=== PATIENT | male | born 1955 | race Caucasian/White ===

== ENCOUNTER 2017-11-07 06:34 | Day surgery (SDC) | payer OTHER ==
[2017-11-07] MEDS ORDERED: NS 1000P @30 MLS/HR (KVO) IV SCH (07:15)
[2017-11-08] MEDS ORDERED: CETI10 PO (09:39)
[2017-11-08] MEDS ORDERED: OMEP20TA93 PO (09:39)
[2017-11-08] MEDS ORDERED: HYDR12.57 PO (09:39)
[2017-11-08] MEDS ORDERED: SYMB160A INH (09:39)
[2017-11-08] MEDS ORDERED: AMLO5TAB2 PO (09:39)
[2017-11-08] MEDS ORDERED: ALBUAER3 INH (09:39)
[2017-11-08] MEDS ORDERED: CIAL20TA PO (09:39)
[2017-11-08] MEDS ORDERED: ASPI81TA23 PO (09:39)
[2017-11-08] MEDS ORDERED: METO1TAB42 PO (09:39)
[2017-11-08] MEDS ORDERED: FIBE625T10 PO (09:39)
[2017-11-08] MEDS ORDERED: HEPARIN-NS/PF FLUSH BAG 2,000 ML IV FLUSH ONE (09:54)
== END 2017-11-07 08:45 | disposition home or self-care (01) ==
LOC: HDOC 06:34 → HDIC 06:35 → HDOC 08:45
PROVIDERS: ATTEND Nuclear Medicine Nuclear Cardiology
DX: R94.39 Abnormal result of other cardiovascular function study (principal); Z53.9 Procedure and treatment not carried out, unspecified reason
CPT/HCPCS: 99211; G0463; J1644

== ENCOUNTER 2017-11-08 09:02 | Day surgery (SDC) | payer OTHER ==
[~2017-11-08] VITALS: Ht 182.9 cm; Wt 100.2 kg
[2017-11-08] MEDS ORDERED: IOHEXOL 350 MG/ML 100 ML BTL (for Cath Lab) OTHER ONE (09:03)
[2017-11-08] MEDS ORDERED: SODIUM CHLOR 0.9% 1000 ML INJ 1,000 ML IV SCH (09:30)
[2017-11-08] MEDS ORDERED: OMEP20TA93 PO (09:39)
[2017-11-08] MEDS ORDERED: FIBE625T10 PO (09:39)
[2017-11-08] MEDS ORDERED: ALBUAER3 INH (09:39)
[2017-11-08] MEDS ORDERED: METO1TAB42 PO (09:39)
[2017-11-08] MEDS ORDERED: AMLO5TAB2 PO (09:39)
[2017-11-08] MEDS ORDERED: CETI10 PO (09:39)
[2017-11-08] MEDS ORDERED: SYMB160A INH (09:39)
[2017-11-08] MEDS ORDERED: ASPI81TA23 PO (09:39)
[2017-11-08] MEDS ORDERED: CIAL20TA PO (09:39)
[2017-11-08] MEDS ORDERED: HYDR12.57 PO (09:39)
[2017-11-08 09:43] VITALS: BP 171/96; PULSE 73; RESP 18; TEMP 98.3; O2SAT 97
[2017-11-08 09:47] LABS: AUTOMATED NEUTROPHIL # 3.2 TH/MM3 (1.8-7.7); BASOPHIL % 0.7 % (0.0-2.0); EOSINOPHIL % 0.6 % (0.0-4.0); HEMATOCRIT 47.4 % (39.0-51.0); HEMOGLOBIN 16.7 GM/DL (13.0-17.0); LYMPH % 31.6 % (9.0-44.0); LYMPHOCYTE # 1.8 TH/MM3 (1.0-4.8); MEAN CELL VOLUME 91.9 FL (80.0-100.0); MEAN CORPUSCULAR HEMOGLOBIN 32.3 PG (27.0-34.0); MEAN CORPUSCULAR HGB CONC 35.2 % (32.0-36.0); MEAN PLATELET VOLUME 6.6 FL (7.0-11.0); MONOCYTE # 0.7 TH/MM3 (0-0.9); NEUT % 55.1 % (16.0-70.0); PLATELET COUNT 267 TH/MM3 (150-450); RED BLOOD COUNT 5.16 MIL/MM3 (4.50-5.90); RED CELL DISTRIBUTION WIDTH 13.1 % (11.6-17.2); WHITE BLOOD COUNT 5.7 TH/MM3 (4.0-11.0)
[2017-11-08 09:52] LABS: INTERNATIONAL NORMALIZED RATIO 1.1 RATIO; PROTHROMBIN TIME - PATIENT 11.3 SEC (9.8-11.6)
[2017-11-08] MEDS ORDERED: VERAPAMIL HCL 5 MG/2 ML VIAL ONE (10:01)
[2017-11-08] MEDS ORDERED: MIDAZOLAM HCL 2 MG/2 ML VIAL ONE (10:01)
[2017-11-08] MEDS ORDERED: HEPARIN SODIUM - IV 10,000 UNITS/10 ML VIAL ONE (10:01)
[2017-11-08] MEDS ORDERED: NITROGLYCERIN INJ 5 ML ONE (10:01)
[2017-11-08 10:02] LABS: BICARBONATE 26.7 MEQ/L (21.0-32.0); CALCIUM 9.3 MG/DL (8.5-10.1)
[2017-11-08] MEDS ORDERED: NS 1000P @30 MLS/HR (KVO) IV SCH (10:30)
--- NOTE | 2017-11-08 10:57 | CATHPROC ---
pickrset HIS Report Study Information Study Number Admission Scheduled Start Study Start [id number] Nov 08 2017 9:02AM 11/08/2017 Nov 08 2017 9:45AM [place] Service Cardiac Catheterization Admit Source Facility Department Other [facility] - Strategic Communications Manager Physician and Clinical Staff Initial Kenny Aguilar Turkey Egg Gatherer Elly Vick RN Turkey Egg Gatherer Yordan Horne,LAMONTE Recorder Brooke Rico,SINGING MESSENGER TECH2 Scrub Akosua Payne,PARALEGAL LEGAL SECRETARY TECH2 Scrub Quita Inman ,RT(R) Procedures Performed Procedure Location (Site) Vessel Name Coronary Angiograms LCA Left Coronary Coronary Angiograms RCA Right Coronary L Heart Cath Wire insertion Radial (right) Radial Art. Equipment Time Lawnmower Repair Mechanic Description Size Mfg Part Number Used/Scraped TRANSDUCER, TRUWAVE [id number] 09:53 WASHINGTON CHAVEZ * Used W/STOCKCOCK *[id number] [id number] *[id number] [id number] *[id number] 09:53 [employer] PACK, CCL CUSTOM * Used *[id number] 09:53 [employer] SUPPORT, ARTERIAL ADULT 35289 *[id number] Used [id number] 10:31 [employer]/AVE EBU 3.5 Z2 GUIDE CATHETER FR 6 Used *[id number] BAND, RADIAL COMPRESSION TR [id number] 10:46 [employer] MEDICAL 29CM Used LARGE 29 *[id number] 09:53 [employer] WIRE, EXCHANGE 260CM 3MMJ 260CM Used *[id number] 09:53 NAMIC MANIFOLD, 4 PORT * Used *[id number] 09:53 [employer] OMNIPAQUE, 350 MG, 150ML 150ML [id number] Used [id number] 09:53 [employer] BL[employer]ET,WARM AIR CCL * Used *[id number] SHEATH, FR6 TRANSRADIAL RM*[id number] 09:53 [employer] FR 6 Used SLENDER 10CM *[id number] 10:37 [employer] PRIME WIRE, VERRATA 185CM 185CM 11283 *[id number] Used History: Current Medications Medication Dosage/Unit Route Frequency Last Date/Time Taken ASA NORVASC LOPRESSOR Prilosec CIALIS History: Allergies Allergy Reaction NKDA History: Risk Factors Family History of Hypertension Dyslipidemia Previous HI Previous Heart Failure Premature CAD Yes No No No No Prior Valve Prior PCI Prior CABG Surgery No No No Cerebrovascular Peripheral Artery Chronic Lung On Dialysis Diabetes Disease Disease Disease No No No Yes No History: Symptoms/Diagnosis Selection Items HAN History: CV Disease Selection Items Known CAD History: Stress Tests Stress or Imaging Studies Performed Yes Standard Exercise Stress Test No Stress Echo No Stress Test SPECT Stress Test SPECT Result Stress Test SPECT Ischemia Risk/Extent Yes Positive Intermediate Stress Test CMR No Cardiac CTA Coronary Calcium Score No No History: Other Disease Selection Items Gerd History: Other Current Smoker No Labs Hgb (g/dl) Hct (%) RBC (MIL/MM3) WBC (l/cumm) Platelets (thousands) 11.60-17.00 35.00-51.00 4.00-5.90 4.00-11.00 150.00-450.00 16.7 47.4 5.1 5.7 267 Glucose (mg/dl) BUN (mg/dl) Creatinine (mg/dl) BUN:Creatinine (1:x) 74.00-106.00 7.00-18.00 0.50-1.30 10.00-20.00 117 15 1.0 15 Na (meq/l) K (meq/l) Cl (meq/l) CO2 (mmol/L) Ca (mg/dl) 136.00-145.00 3.50-5.10 98.00-107.00 21.00-32.00 8.50-10.10 139 3.7 106 26.7 9.3 PT (sec) PTT (sec) INR (PTT:PT) 9.80-11.60 24.30-30.10 0.90-1.10 11.3 26.1 1.1 Medication Medication Total Dose (Bolus/Oral) Medication Total Dosage/Unit 1% XYLOCAINE 20 mL FENTANYL 25 mcg HEPARIN 6000 units RADIAL COCKTAIL 5 mL (Bolus) VERSED 0.5 mg Medications (Bolus/Oral) Medication Time Given Dosage/Unit Administered By Reason 1% XYLOCAINE 11/08/2017 10:15:49 AM 20 mL Kenny Ruiz 20 mL 1% XYLOCAINE given in lab by Kenny Ruiz in Right Radial via Subcutaneous. Ordered by Kenny Medina VERSED 11/08/2017 10:15:49 AM 0.5 mg Elly Vick 0.5 mg VERSED given in lab by Elly Vick, RN in Left Antecubital via Peripheral IV. Ordered by Kenny Medina FENTANYL 11/08/2017 10:16:08 AM 25 mcg Elly Vick 25 mcg FENTANYL given in lab by Elly Vick RN in Left Antecubital via Peripheral IV. Ordered by Kenny Ruiz RADIAL COCKTAIL 11/08/2017 10:18:21 AM 5 mL (Bolus) Kenny Ruiz 5 mL (Bolus) RADIAL COCKTAIL given in lab by Kenny Ruiz in Right Radial via Radial. Using [S olution Name]. Ordered by Kenny Ruiz Reason: Ntg 200mcg Verapamil 2.5mg Heparin 4000U. HEPARIN 11/08/2017 10:32:36 AM 6000 units Elly Vick 6000 units HEPARIN given in lab by Elly Vick RN in Left Antecubital via Peripheral IV. Ordered by Kenny Ruiz Medication (Drip) Medication Time Given Dosage/Unit Concentration/Unit Diluent (ml) Solution IV Solutions 11/08/2017 9:53:34 AM 0 mL (IV) 500 NaCl .9 IV Solutions given in lab by Elly Vick RN in Left Antecubital via Peripheral IV. Pump/Drip Jean w = 20 ml/hr using NaCl .9. Ordered by Kenny Ruiz Initial Case Assessment Cardiovascular HR Rhythm NIBP Chest Pain 80 bbb 154/122 0 Circulatory - Right Pulses Dorsalis Pedis Femoral Radial 3 2 3 Scale (0,1,2,3,4,d) Circulatory - Left Pulses Dorsalis Pedis Femoral Radial 2 Scale (0,1,2,3,4,d) Neurological State Oriented to time-place- Alert Moves all extremities person Respiration - General Respiration Rate SpO2 (%) (B/min) 18 97 Final Case Assessment Cardiovascular HR Rhythm NIBP Chest Pain 65 bbb 101/81 0 Circulatory - Right Pulses Dorsalis Pedis Femoral Radial 3 3 3 Scale (0,1,2,3,4,d) Circulatory - Left Pulses Dorsalis Pedis Femoral Radial 2 Scale (0,1,2,3,4,d) Neurological State Oriented to time-place- Alert Moves all extremities person Respiration - General Respiration Rate SpO2 (%) (B/min) 13 97 Chronological Log Time Study Chronological Log 9:47:57 Patient arrived via Bed. 9:47:58 Patient Name, D.O.B, / Armband Verified By R.N. 9:49:59 Consent signed by the physician and the patient and verified by the Strategic Communications Manager staff. 9:50:00 Pre-op and post- op instructions given; patient acknowledges understanding of instructions. 9:50:01 Verbal Stimulation=2 Physical Stimulation=2 Airway=2 Respiration=2 TOTAL=8. (0=absent, 1=parra ited, 2=present) 9:53:17 Presedation assessment performed by Strategic Communications Manager RN. 9:53:19 Allens test performed on the left radial and ulnar artery. 9:53:24 Patient has been NPO for More than 6Hrs. 9:53:27 Skin Breakdown-none 9:53:31 Neftaly Prominences Protected 9:53:33 A # 20 IV was noted in the Antecubital (left). Grade = patent IV Solutions given in lab by Elly Vick, RN in Left Antecubital via Peripheral IV. Pump/Dr ip Flow = 20 ml/hr using 9:53:34 NaCl .9. Ordered by Kenny Ruiz 9:53:36 History and physical on the chart or being dictated. Vitals capture started with the following parameters, Patient=Adult, Interval=5 min, Initial Pr qbnavl=737 mmHg, 9:53:39 Deflation Rate=5 mmHg, Cuff placed on Left Arm 9:54:15 HR=78 bpm, WRWF=762/122 mmhg, SpO2=96 %, Resp=15 B/min, Pain=0, Armando=10, Bagley=2 Assessment: Initial Case, HR=80 BPM, Rhythm=bbb, QCPS=306/122 mmhg, Chest Pain=0 Right Pulses: Ottoniel Ped=3, Femoral=2, Radial=3 9:55:02 Left Pulses: Ottoniel Ped=2 Neurological: State=Alert, Ox3, DELEON Respiration: Resp=18 B/min, SpO2=97 % 9:59:59 HR=88 bpm, NCWF=753/96 mmhg, SpO2=93.0 %, Resp=17 B/min 10:00:28 Right groin and right radial prepped with 2% chlorhexidine, and draped after a 3 min. waiti ng time. 10:04:19 HR=78 bpm, ZQBP=289/74 mmhg, SpO2=97 %, Resp=17 B/min, Pain=0, Armando=10, Bagley=2 10:06:39 Pressure channel 1 zeroed. 10:09:18 HR=80 bpm, FAAL=874/93 mmhg, SpO2=94.0 %, Resp=18 B/min 10:09:38 MD arrived. 10:10:46 Reference ECG taken 10:14:19 HR=78 bpm, GVAQ=123/98 mmhg, SpO2=93.0 %, Resp=14 B/min Time Out. Correct patient, correct procedure, correct physician, power injector loaded, or not loaded with contrast with 10:15:14 surgical team present. Time Out Concurred by MD and individual staff in procedure. 10:15:48 Case Start 20 mL 1% XYLOCAINE given in lab by Kenny Ruiz in Right Radial via Subcutaneous. Ordere d by Joseph 10:15:49 Kenny Fuentes. 0.5 mg VERSED given in lab by Elly Vick, RN in Left Antecubital via Peripheral IV. Ordere d by Kenny Ruiz 10:15:49 G. 25 mcg FENTANYL given in lab by Elly Vick, LAMONTE in Left Antecubital via Peripheral IV. Orde red by Joseph, 10:16:08 Kenny Fuentes. 10:16:51 Access site was Radial Artery. right A SHEATH, FR6 TRANSRADIAL SLENDER 10CM FR 6 was advanced into the Radial (right) using the Perc utaneous 10:17:04 technique. 5 mL (Bolus) RADIAL COCKTAIL given in lab by Kenny Ruiz in Right Radial via Radial. Us ing [Solution Name]. 10:18:21 Ordered by Kenny Ruiz. Reason: Ntg 200mcg Verapamil 2.5mg Heparin 4000U. A JR 4.0 INFINITI CATHETER FR 5 was advanced over a wire. OMNIPAQUE, 350 MG, 150ML 150ML was us ed for 10:19:02 injections. 10:19:22 HR=79 bpm, TSLA=626/86 mmhg, SpO2=95.0 %, Resp=12 B/min Recorded Pressure: LV, HR=78, Condition=Condition 1 10:20:14 (Left Ventricle) LV 129/1/8 Recorded Pressure: LV, Ao, HR=77, Condition=Condition 1 10:20:26 (Left Ventricle) LV 133/0/8, (Aorta) Ao 127/71/96 10:21:52 The RCA was injected and visualized at various angles. OMNIPAQUE, 350 MG, 150ML 150ML used . After removing the current catheter a JL 3.5 INFINITI CATHETER FR 5 was advanced over a WIRE, E XCHANGE 260CM 10:22:22 3MMJ 260CM. 10:24:17 HR=73 bpm, SLNG=594/86 mmhg, SpO2=93 %, Resp=15 B/min 10:25:40 The LCA was injected and visualized at various angles. OMNIPAQUE, 350 MG, 150ML 150ML used . 10:29:13 Catheter was removed over wire. 10:29:55 HR=70 bpm, TLYR=179/93 mmhg, SpO2=91.0 %, Resp=23 B/min A EBU 3.5 Z2 GUIDE CATHETER FR 6 was advanced over a wire. OMNIPAQUE, 350 MG, 150ML 150ML was u sed for 10:32:14 injections. 6000 units HEPARIN given in lab by Elly Vick, LAMONTE in Left Antecubital via Peripheral IV. O rdered by Joseph, 10:32:36 Kenny Park 10:34:29 HR=67 bpm, TFEK=744/59 mmhg, SpO2=96.0 %, Resp=19 B/min 10:35:48 Pressure channel 1 zeroed. 10:36:13 A PRIME WIRE, VERRATA 185CM 185CM was inserted via Radial (right). 10:39:16 HR=64 bpm, BULV=461/81 mmhg, SpO2=97.0 %, Resp=12 B/min 10:44:19 HR=65 bpm, GCUI=115/89 mmhg, SpO2=94.0 %, Resp=13 B/min, Armando=10 10:44:32 Flow Wire was was placed in the LAD Prox. The IFR measures 0.95 Percent. 10:45:25 The PRIME WIRE, VERRATA 185CM 185CM was removed. 10:45:41 Catheter was removed over wire. Radial Compression Device Used. 11 mLs of air placed in BAND, RADIAL COMPRESSION TR LARGE 29 29 CM. Affected 10:46:43 hand 96 % O2 saturation. 10:48:25 Case End 10:49:16 YRQW=593/81 mmhg, SpO2=97.0 % Assessment: Final Case, HR=65 BPM, Rhythm=bbb, YTIU=107/81 mmhg, Chest Pain=0 Right Pulses: Ottoniel Ped=3, Femoral=3, Radial=3 10:49:44 Left Pulses: Ottoniel Ped=2 Neurological: State=Alert, Ox3, DELEON Respiration: Resp=13 B/min, SpO2=97 % 10:52:37 No case complications noted. 10:52:43 Cine recording checked. 10:52:44 Bedside Report will be given. 10:52:52 A Left Heart Cath was performed. 10:53:06 Patient moved to bed 10:53:14 Patient transported to DOCU End Study - Contrast Media Used In Study Contrast Total Opened (mL) Total Used (mL) Total Wasted (mL) Omnipaque 80 80 0 End Study - Maximum Contrast Load Max Contrast Load (mL) 500.9 End Study - Radiation Exposure Fluoro Time (minutes) 4.9 End Study - Sheaths Sheaths Pulled By Sheath Hold Time (min) Kenny Ruiz End Study - Patient Disposition Complications Transferred To Interventional Outcome No Telemetry Bed No attempt made
[2017-11-08] MEDS ORDERED: HEPARIN-NS/PF FLUSH BAG 2,000 ML IV FLUSH ONE (11:11)
[2017-11-08] MEDS ORDERED: MISC INFORMATION XX ONE (11:15)
--- NOTE | 2017-11-08 11:38 | MA ---
cc: KENNY COLEMAN DO DATE OF PROCEDURE November 08, 2017 PROCEDURE Left heart catheterization, coronary angiogram, moderate sedation 30 minutes. PREPROCEDURE DIAGNOSIS Chest pain, abnormal stress test. POSTPROCEDURE DIAGNOSIS Mild coronary artery disease. MEDICATIONS 1. Versed 0.5 mg. 2. Fentanyl 25. 3. Heparin 8500 units. 4. Verapamil 2.5 mg. 5. Nitro 200 mcg. CONTRAST USED 80 mL FLUOROSCOPY 4.9 minutes MODERATE SEDATION 30 minutes. ESTIMATED BLOOD LOSS 10 cc PROCEDURAL SUMMARY Pedro Phoenix is a pleasant 62-year-old male who sees my partner Dr. Valdez in the office and presented due to chest pain. He underwent stress testing which showed inferior ischemia and because of this he was recommended cardiac catheterization. The risks, benefits and alternatives were explained to him and he consented as such. He was brought to lab and prepped in the usual sterile fashion. The right radial artery was accessed using a modified Seldinger technique and placement of a 5/6 -Bulgarian Slender Sheath. This was easily aspirated and flushed. A JR-4 was advanced over a J-wire to the ascending aorta and across the aortic valve for measurement of left ventricular pressures. This was pulled back across the aortic valve showing no significant gradient of aortic stenosis. The JR-4 was used for selective angiography of the right coronary artery system. This was exchanged out for a JL-3.5 which was used for selective angiography of the left coronary system. In the proximal LAD there was at least mild to moderate disease and as the patient had pretty typical symptoms. I felt this that this needed to be further evaluated. The catheter was exchanged for an EBU 3.5 guide. The patient was given additional heparin. Verrata wire was then advanced down the LAD. IFR was measured at 0.95 which shows nonphysiologic stenosis. The wire was removed. Final angiogram shows no disruption of the coronary vasculature. Radial band was placed over the arteriotomy site. The patient left the manager laboratory cardiovascularly stable. FINDINGS LEFT MAIN: Large vessel with adequate reflux and no disease. It bifurcates into an LAD and circumflex. LAD: Rsqxgaed-oa-[id number] sized vessel with 40% lesion in the proximal portion (IFR 0.95). Distally no significant disease. It gives off one major diagonal which has an upper and lower branch and no significant disease. LEFT CIRCUMFLEX: A large system overall. It has no disease throughout the left circumflex or major obtuse marginal. RCA: Moderate-sized vessel. No disease noted throughout. It I a dominant vessel and supplies a small PLV and a PDA with no significant disease. LVEDP: 8. IMPRESSIONS 1. Chest pain. 2. Abnormal stress test. 3. Mild coronary artery disease as above. RECOMMENDATIONS 1. Mr. Phoenix underwent cardiac catheterization and was found to have mild coronary artery disease and recommended medical therapy. 2. As far as his chest pain goes during running, he does not appear to have any coronary artery disease to this. He did have hypertension noted during the case with blood pressures as high as 170/90. It is possible that he gets hypertensive during his run which possibly could cause his chest pain with shortness of breath. 3. He will follow up with his primary care physician as well as Dr. Valdez as previously scheduled. Thank you for allowing me to see Pedro Phoenix. If there are any questions please do not hesitate to call. Kenny Coleman DO VGP/SSB /10:54 AM /11:09 AM
--- NOTE | 2017-11-08 23:23 | EKG ---
Date Performed: 11/08/2017 Time Performed: 09:35:36 PTAGE: 62 years EKG: Sinus rhythm . Right bundle branch block Abnormal ECG NO PREVIOUS TRACING DOCTOR: Ada Parry Interpretating Date/Time 11/08/2017 23:21:56
== END 2017-11-08 16:25 | disposition home or self-care (01) ==
LOC: HDOC 09:02 → HDIC 09:02 → HDOC 16:25
PROVIDERS: ATTEND Nuclear Medicine Nuclear Cardiology
DX: I25.10 Atherosclerotic heart disease of native coronary artery without angina pectoris (principal); I10 Essential (primary) hypertension; I35.1 Nonrheumatic aortic (valve) insufficiency; I45.10 Unspecified right bundle-branch block; R06.09 Other forms of dyspnea
CPT/HCPCS: 80048; 85025; 85610; 85730; 93005; 93458; 93571; 99152; 99153; C1769; C1887; C1893; J1644; J2250; J3010; Q9967

== ENCOUNTER 2018-02-13 17:55 | Emergency (ER) | payer OTHER ==
[~2018-02-13] VITALS: Ht 182.9 cm; Wt 101.8 kg
[~2018-02-13 17:55] MED LIST: ALBUAER3 INH; AMLO5TAB2 PO; ASPI81TA23 PO; CETI10 PO; CIAL20TA PO; FIBE625T10 PO; HYDR12.57 PO; METO1TAB42 PO; OMEP20TA93 PO; SYMB160A INH
[2018-02-13 18:09] VITALS: BP 142/80; PULSE 69; RESP 18; TEMP 98.1; O2SAT 97
[2018-02-13] MEDS ORDERED: TAMS0.4C4 PO (18:24)
--- NOTE | 2018-02-13 18:25 | PD ---
HPI Chief Complaint: Fall Time Seen by Provider: 18:15 Travel History International Travel<30 days: No Contact w/Intl Traveler<30days: No Traveled to known affect area: No History of Present Illness HPI 62-year-old male presents to the emergency room for evaluation of left foot pain after falling just prior to arrival. Patient slipped on the toilet his health and fell backwards. He believes he smacked his left lateral foot against the tile and landed on it. He hit the back of his head but denies loss of consciousness. He also injured his right elbow but states the pain is minimal. Pain is localized to the left lateral midfoot without radiation. Patient denies any paresthesias. He has not taken anything for pain. Pain is 10/10 when standing or ambulating and 5/10 at rest. PFSH Past Medical History Cancer: No Cardiac Catheterization: Yes Cardiovascular Problems: Yes (PR 08/2017) High Cholesterol: Yes Chest Pain: Yes Diabetes: No Diminished Hearing: No Gastrointestinal Disorders: No Glaucoma: No Hepatitis: No Hiatal Hernia: No Hypertension: Yes Respiratory: Yes (asthma) Integumentary: No Thyroid Disease: No Influenza Vaccination: No Social History Alcohol Use: Yes Tobacco Use: No Allergies-Medications (Allergen,Severity, Reaction): Coded Allergies: No Known Allergies (Verified Allergy, Intermediate, 02/13/18) Reported Meds & Prescriptions Reported Meds & Active Scripts Active Reported Tamsulosin (Tamsulosin HCl) 0.4 Mg Cap 0.4 Mg PO DAILY Omeprazole 20 Mg Tab 20 Mg PO DAILY Metoprolol Succinate ER 24 HR (Metoprolol Succinate) 25 Mg Tab 12.5 Mg PO DAILY Fiber (Calcium Polycarbophil) 625 Mg Tab 625 Mg PO PRN Cialis (Tadalafil) 20 Mg Tab 20 Mg PO DAILY PRN Do not exceed 1 dose/day. Cetirizine (Cetirizine HCl) 10 Mg Tab 10 Mg PO DAILY Aspirin EC (Aspirin) 81 Mg Tabdr 81 Mg PO DAILY Amlodipine (Amlodipine Besylate) 5 Mg Tab 5 Mg PO DAILY Review of Systems Except as stated in HPI: all other systems reviewed are Neg Physical Exam Narrative GENERAL: Well-nourished, well-developed male in no acute distress. Afebrile. Ambulatory. SKIN: Focused skin assessment warm/dry. Mild ecchymosis of the left first, second toes and the left lateral midfoot. There is also some ecchymosis on the right elbow. HEAD: Normocephalic. EYES: No scleral icterus. No injection or drainage. NECK: Supple, trachea midline. No JVD or lymphadenopathy. CARDIOVASCULAR: Regular rate and rhythm without murmurs, gallops, or rubs. RESPIRATORY: Breath sounds equal bilaterally. No accessory muscle use. MUSCULOSKELETAL: No cyanosis. Very mild edema of the left lateral midfoot. Extreme tenderness to palpation of the left midfoot. 2+ dorsalis pedis pulse. Full range of motion of the foot but with pain. Data Data Last Documented VS Vital Signs Date Time Temp Pulse Resp B/P (MAP) Pulse Ox O2 Delivery O2 Flow Rate FiO2 02/13/18 18:09 98.1 69 18 142/80 (100) 97 Orders Orders Foot, Complete ([id number]) (02/13/18 ) [facility] Medical Decision Making Medical Screen Exam Complete: Yes Emergency Medical Condition: Yes Medical Record Reviewed: Yes Differential Diagnosis Fracture, sprain, strain, contusion, dislocation Narrative Course 62-year-old male presents to the emergency room for evaluation of left lateral foot pain after falling earlier today. Patient fell backwards and believes that his left leg landed underneath him. He also believes he smacked his left foot on the tile. He had his head but denies loss of consciousness. He denies headache, nausea, vomiting, confusion, weakness. He is not on blood thinners. Since then he has had severe pain, especially with walking. Left lower extremity is neurovascularly intact with 2+ dorsalis pedis pulse. There is very mild, localized edema to the lateral midfoot and it is extremely tender to palpation. X-ray is negative. This is contusion. Patient reassured and placed in Brad wrap. Told to follow-up with her primary care physician or return for worsening symptoms. He understands and agrees to plan. Diagnosis Primary Impression: Contusion of left foot Qualified Codes: S90.32XA - Contusion of left foot, initial encounter Referrals: Primary Care Physician Additional Instructions: Rest and drink plenty of fluids. Brad wrap as directed. Take ibuprofen with food as directed, as needed for pain. Apply ice to the affected area for 20 minutes at a time, as needed for pain and swelling. Follow-up with a primary care physician. Return to the emergency room for worsening symptoms. Med/Other Pt SpecificInfo: Prescription(s) given Disposition: 01 DISCHARGE HOME Condition: Stable Lyssa Elliott February 13, 2018 18:25
--- NOTE | 2018-02-13 19:02 | RADRPT ---
EXAM DATE: 02/13/2018 6:46 PM EDT AGE/SEX: 62 years / Male INDICATIONS: Left foot pain on lateral side after fall. CLINICAL DATA: This is the patient's initial encounter. Patient reports that signs and symptoms have been present for 1 day and indicates a pain score of 5/10. MEDICAL/SURGICAL HISTORY: None. None. COMPARISON: No prior [facility] exams available for comparison. FINDINGS: Bony structures are intact and in normal alignment. Osseous density is normal. Soft tissues are unre markable. No radiopaque foreign bodies seen. CONCLUSION: No evidence of recent bony injury. Electronically signed by: Grzegorz Edouard MD 02/13/2018 7:01 PM EDT
== END 2018-02-13 19:24 | disposition home or self-care (01) ==
LOC: PHEFT 17:55
DX: S90.32XA Contusion of left foot, initial encounter (principal); S59.901A Unspecified injury of right elbow, initial encounter; J45.909 Unspecified asthma, uncomplicated; I10 Essential (primary) hypertension; W18.12XA Fall from or off toilet with subsequent striking against object, initial encounter; Y92.002 Bathroom of unspecified non-institutional (private) residence as the place of occurrence of the external cause
CPT/HCPCS: 73630; 99283